=== PATIENT | male | born 1960 | race Caucasian/White ===

== ENCOUNTER 2020-12-15 11:07 | Observation (INO) | payer BC ==
[~2020-12-15] VITALS: Ht 172.7 cm; Wt 79.4 kg
[~2020-12-15 11:07] MED LIST: ASPIRIN EC81 MG PO; FLEXERIL 10 MG10 MG PO; IMDUR ER TAB 3030 MG PO; ISOSORBIDE MONO60 MG PO; LIDODERM PATCH 51 EA EXT; LIPITOR TAB 1010 MG PO; METOPROLOL SUCC25 MG PO; NITROSTAT 0.40.4 MG SL; PRILOSEC OTC20 MG PO; RANEXA1000 MG PO; RANEXA500 MG PO; TORADOL 10 MG T10 MG PO
[2020-12-15 11:27] LABS: HEMOGLOBIN 14.7 gm/dl (14.0-17.5); RED BLOOD COUNT 4.87 M/UL (4.20-5.50); WHITE BLOOD COUNT 7.7 K/UL (4.5-11.0)
[2020-12-15 11:50] LABS: BUN/CREATININE RATIO 15 (0-10)
[2020-12-15] MEDS ORDERED: LORATADINE10 MG PO (14:03)
[2020-12-16 01:48] LABS: HEMOGLOBIN 14.5 gm/dl (14.0-17.5); RED BLOOD COUNT 4.81 M/UL (4.20-5.50); WHITE BLOOD COUNT 7.7 K/UL (4.5-11.0)
[2020-12-16 04:13] LABS: BUN/CREATININE RATIO 19 (0-10)
== END 2020-12-16 17:33 | disposition home or self-care (01) ==
LOC: ER1 11:07 → MED SURG 4 12:35 → NSRY 12:35 → CDU 13:05 → MED SURG 4 16:47
PROVIDERS: ADMIT Internal Medicine
DX: I25.119 Atherosclerotic heart disease of native coronary artery with unspecified angina pectoris (principal); I25.2 Old myocardial infarction; E78.5 Hyperlipidemia, unspecified; K21.9 Gastro-esophageal reflux disease without esophagitis; F17.210 Nicotine dependence, cigarettes, uncomplicated; Z79.82 Long term (current) use of aspirin; Z20.822 Contact with and (suspected) exposure to COVID-19; R00.1 Bradycardia, unspecified; I11.9 Hypertensive heart disease without heart failure; I08.3 Combined rheumatic disorders of mitral, aortic and tricuspid valves
CPT/HCPCS: ECHO; 36415; 71045; 78452; 80048; 80053; 80061; 81001; 82550; 82553; 83874; 84484; 85025; 85027; 93005; 93017; 93306; 96372; 96374; 99285; A9502; G0378; J1650; J1885; U0002